=== PATIENT | female | born 1945 | race Native Hawaiian/Other Pacific Islander ===

== ENCOUNTER 2020-06-05 21:30 | Emergency (ER) | payer OTHER ==
[~2020-06-05] VITALS: Ht 157.5 cm; Wt 61.2 kg
[~2020-06-05 21:30] MED LIST: AMLO5TAB PO; CALTRATE 600+D1 TAB OR; COZAAR100 MG PO; RANI150T78 PO
[2020-06-05 21:53] LABS: PLATELET COUNT 335 K/uL (152-353)
[2020-06-05 21:57] LABS: POTASSIUM 3.9 mmol/L (3.6-5.2); SODIUM 138 mmol/L (136-145)
[2020-06-05 22:06] LABS: PARTIAL THROMBOPLASTIN TIME 22.2 SECONDS (24.5-33.6)
[2020-06-06 00:30] VITALS: BP 156/55; TEMP 97.8
== END 2020-06-06 00:30 | disposition short-term general hospital (02) ==
LOC: ED 21:35
PROVIDERS: Family Medicine
DX: I63.9 Cerebral infarction, unspecified (principal); R29.810 Facial weakness; Z03.818 Encounter for observation for suspected exposure to other biological agents ruled out; Z79.899 Other long term (current) drug therapy
CPT/HCPCS: 80053; 80307; 81000; 82550; 84484; 85027; 85610; 85730; 87635; 93005; 99285; U0003

== ENCOUNTER 2022-08-09 09:20 | Outpatient (CLI) | payer OTHER | END 2022-08-09 19:08 | disposition home or self-care (01) | LOC: US 09:20 | PROVIDERS: ATTEND Internal Medicine | DX: G45.3 Amaurosis fugax (principal) ==

== ENCOUNTER 2022-08-12 09:57 | Outpatient (CLI) | payer OTHER | END 2022-08-12 20:36 | disposition home or self-care (01) | LOC: CT 09:57 | PROVIDERS: ATTEND Internal Medicine | DX: G45.3 Amaurosis fugax (principal); R55 Syncope and collapse; I10 Essential (primary) hypertension ==

== ENCOUNTER 2023-01-05 08:58 | Outpatient (CLI) | payer OTHER | END 2023-01-05 19:11 | disposition home or self-care (01) | LOC: CT 08:58 | PROVIDERS: ATTEND Psychiatry & Neurology Neurology with Special Qualifications in Child Neurology | DX: Z86.73 Personal history of transient ischemic attack (TIA), and cerebral infarction without residual deficits (principal) | CPT/HCPCS: 36415; 82565; 84520 ==